=== PATIENT | female | born 1985 | race Caucasian/White ===

== ENCOUNTER 2023-02-16 06:30 | Inpatient (IN) ==
[2023-02-16] MEDS: D5 1/2 NS 1,000 ML 1,000 ML IV SCH ×3 (07:00→18:47)
--- NOTE | 2023-02-16 07:21 | DR.OB ---
OB Quick Note - Assessment/Plan Assessment/Plan: L&D 02/16/23 at 7:10am S-No complaint. O-Afebrile,VSS AVS=327 with good LTV, +accel, no decel. CTX=none CVX=2cm/50%/-1/VTX AROM with clear fluid. IUPC and FSE placed. No genital or perineal lesions. A-IUP at 38 5/7 weeks for induction A1DM AMA P-Begin pitocin induction Anticipate
[2023-02-16] MEDS ORDERED: PITOCIN IVP ONE (07:27)
[2023-02-16] MEDS ORDERED: NUBAIN INJ 20 MG AMP IVP PRN (07:27)
[2023-02-16] MEDS ORDERED: REGLAN INJ 10 MG VIAL IVP PRN (07:27)
[2023-02-16] MEDS ORDERED: D5 LR + PITOCIN 10 UNITS/L 10 UNITS/1,000 ML BAG IV PRN (07:27)
[2023-02-16] MEDS ORDERED: MORPHINE SULFATE INJ 2 MG INJ IVP PRN (07:27)
[2023-02-16] MEDS ORDERED: STADOL INJ IVP PRN (07:30)
[2023-02-16 07:58] LABS: APPEARANCE,URINE HAZY (CLEAR); BILIRUBIN,URINE NEGATIVE (NEGATIVE); BLOOD/HEMOGLOBIN,URINE 1+ (NEGATIVE); COLOR,URINE YELLOW (YELLOW); GLUCOSE, URINE NEGATIVE (NEGATIVE); KETONES,URINE NEGATIVE (NEGATIVE); LEUKOCYTE ESTERASE ,URINE 3+ (NEGATIVE); NITRITES,URINE NEGATIVE (NEGATIVE); PROTEIN,URINE 2+ (NEGATIVE); UROBILINOGEN,URINE NORMAL (NORMAL)
[2023-02-16 07:59] LABS: BACTERIA,URINE 1+ /HPF (NEGATIVE); SQUAMOUS EPITHELIAL CELL,UR MODERATE /HPF (NEGATIVE)
[2023-02-16 08:02] LABS: BASOPHILS # (AUTO) 0.2 X10^3/uL (0.0-0.1); BASOPHILS % (AUTO) 1.9 % (0.2-1.0); EOSINOPHILS # (AUTO) 0.1 x10^3/uL (0.0-0.2); EOSINOPHILS % (AUTO) 0.7 % (0.9-2.9); HEMATOCRIT 31.5 % (36.0-47.0); HEMOGLOBIN 10.4 g/dL (12.0-16.0); LYMPHOCYTES # (AUTO) 1.4 X10^3/uL (1.3-2.9); LYMPHOCYTES % (AUTO) 14.8 % (21.0-51.0); MEAN CORPUSCULAR HEMOGLOBIN 24.5 pg (27.0-34.0); MEAN CORPUSCULAR HGB CONC 32.9 g/dL (33.0-35.0); MEAN CORPUSCULAR VOLUME 74.6 fL (80.0-100.0); MEAN PLATELET VOLUME 8.8 fL (7.4-11.0); MONOCYTES # (AUTO) 0.5 x10^3/uL (0.3-0.8); MONOCYTES % (AUTO) 5.3 % (0.0-13.0); NEUTROPHILS # (AUTO) 7.5 x10^3/uL (2.2-4.8); NEUTROPHILS % (AUTO) 77.3 % (42.0-75.0); RED BLOOD COUNT 4.22 X10^6/uL (3.5-5.4); RED CELL DISTRIBUTION WIDTH 16.9 % (11.6-16.5); WHITE BLOOD COUNT 9.8 X10^3/uL (3.6-10.0)
[2023-02-16 08:06] LABS: BLOOD UREA NITROGEN 7 mg/dL (7-18); CALCIUM 8.3 mg/dL (8.5-10.1); CARBON DIOXIDE 21.6 mmol/L (21-32); CHLORIDE 104 mmol/L (98-107); CREATININE 0.57 mg/dL (0.55-1.02); SODIUM 136 mmol/L (136-145); eGFR NON BLACK RACES > 60 (>60)
[2023-02-16 08:23] LABS: MICROCYTOSIS SLIGHT; PLATELET MORPHOLOGY COMMENT NORMAL (NORMAL)
[2023-02-16] MEDS ORDERED: LR 1,000 ML IV 1,000 ML IV ONE ×2 (10:48→16:11)
[2023-02-16] MEDS ORDERED: ROPIVACAINE EPI ONE (10:49)
[2023-02-16] MEDS ORDERED: FENTANYL VIAL INJ 100 mcg EPI ONE (10:49)
[2023-02-16] MEDS ORDERED: NAROPIN EPIDURAL 0.2% 100 ML EPI PRN (11:36)
--- NOTE | 2023-02-16 12:31 | DR.OB ---
OB Quick Note - Assessment/Plan Assessment/Plan: L&D 02/16/23 at 12:25pm Pitocin=18mu/min. S-No complaint. s/p epidural. O-Afebrile,VSS DFP=053 with good LTV, +accel, no decel. CTX=q 1 1/2 min., about 55-65mmHg CVX=3cm/50%/-1/VTX A-IUP at 38 5/7 weeks for induction A1DM AMA P-Cont. pitocin induction Anticipate
[2023-02-16] MEDS: ZOFRAN INJ 4 MG VIAL IVP PRN ×2 (12:57→17:50)
--- NOTE | 2023-02-16 16:44 | DR.OB ---
OB Quick Note - Assessment/Plan Assessment/Plan: L&D 02/16/23 at 4:40pm Pitocin=10mu/min. S-No complaint. O-Afebrile,VSS LYE=041 with good LTV, +accel, no decel. CTX=q 1 1/2 to 2 min., about 55-60mmHg CVX=5-6cm/50%/-1/VTX A-IUP at 38 5/7 weeks for induction A1DM AMA P-Continue pitocin induction Anticipate
--- NOTE | 2023-02-16 19:21 | DR.OB ---
OB Quick Note - Assessment/Plan Assessment/Plan: Delivery Note TOBACCO [facility]ER 02/16/23 at 7:07pm Patient complete and pushing. Head delivered over intact perineum. Nose and mouth bulb suctioned. No nuchal cord. Body delivered over intact perineum. Cord clamped x 2 and cut. handed to attendant. Cord sent for gases. Placenta delivered spontaneously / intact / 3 vessel cord over intact perineum. No CVX / vaginal / perineal tears. Viable female , , wt=6'7" and 8/9, stable to NBN. Mother stable to RR. OQJ=623ml.
[2023-02-16] MEDS: D5 1/2 NS 1,000 ML 1,000 ML with PITOCIN 20 UNITS IV SCH ×2 (19:33)
[2023-02-16] MEDS ORDERED: DERMOPLAST PAIN RELIEF SPRAY TOP PRN (19:56)
[2023-02-16] MEDS ORDERED: AMBIEN PO PRN (19:56)
[2023-02-16] MEDS ORDERED: ADACEL or BOOSTRIX TDaP VACCINE IM ONE (19:56)
[2023-02-16] MEDS ORDERED: MILK OF MAGNESIA PO PRN (19:56)
[2023-02-16] MEDS: MOTRIN TAB 800 MG PO PRN (21:38)
[2023-02-17] MEDS: D5 1/2 NS 1,000 ML 1,000 ML with PITOCIN 20 UNITS IV SCH ×6 (04:15→20:46)
[2023-02-17 04:53] LABS: HEMATOCRIT 29.9 % (36.0-47.0); HEMOGLOBIN 9.8 g/dL (12.0-16.0)
[2023-02-17] MEDS: PRENATAL PLUS PO SCH (08:22)
[2023-02-18] MEDS ORDERED: MOTRIN TAB 800 MG PO ONE (01:08)
[2023-02-18] MEDS: MOTRIN TAB 800 MG PO PRN (01:10)
[2023-02-18] MEDS: D5 1/2 NS 1,000 ML 1,000 ML with PITOCIN 20 UNITS IV SCH ×2 (03:30)
[2023-02-18] MEDS ORDERED: PRENATAL PLUS PO ONE (08:05)
[2023-02-18] MEDS ORDERED: ADACEL or BOOSTRIX TDaP VACCINE IM ONE (08:44)
[2023-02-18] MEDS: PRENATAL PLUS PO SCH (08:49)
[2023-02-18 10:32] VITALS: BP 139/66
== END 2023-02-18 09:45 | disposition home or self-care (01) | DRG 807 ==
LOC: LD 06:30 → MED/SURG 20:57
PROVIDERS: ADMIT Specialist; ATTEND Specialist
DX: Z86.19 Personal history of other infectious and parasitic diseases; O99.013 Anemia complicating pregnancy, third trimester; D50.8 Other iron deficiency anemias; O24.410 Gestational diabetes mellitus in pregnancy, diet controlled; Z3A.38 38 weeks gestation of pregnancy; O99.891 Other specified diseases and conditions complicating pregnancy; Z37.0 Single live birth; N87.0 Mild cervical dysplasia